=== PATIENT | female | born 2000 | race Caucasian/White ===

== ENCOUNTER 2022-11-25 12:15 | Emergency (ER) | payer BC, SELFPAY ==
[2022-11-25 12:16] VITALS: BP 129/94; PULSE 114; RESP 18; TEMP 37.3; O2SAT 100; BMI 24.4
--- NOTE | 2022-11-25 12:37 | EDS_ITS ---
HPI <JALEN Vega - Last Filed: 11/25/22 15:18> HPI - Female History of Present Illness Chief Complaint: Vag Bld, Preg Narrative Narrative: 22-year-old female thinks she is 7 weeks by dates. 3 days ago she started to have lower abdominal cramping and bleeding. She passed clots yesterday but the bleeding slowed today to spotting. She denies fever chills nausea or vomiting. She is scheduled for her first [employer] appointment with Dr. Bhavesh Green on November 30. This is her first . PFSH <JALEN Vega - Last Filed: 11/25/22 15:18> PFSH Home Medications cephalexin 500 mg capsule 500 mg PO TID 5 days #15 caps 11/25/22 [Rx Last Taken Unknown] Allergy/AdvReac Type Severity Reaction Status Date / Time No Known Allergies Allergy Verified 11/25/22 12:15 Social History Smoking Status: Never smoker ROS <JALEN Vega - Last Filed: 11/25/22 15:18> ROS ED ROS Narrative Constitutional: Negative for fever, chills, malaise. CVS: Negative for palpitations, chest pain. Respiratory: Negative for shortness of breath. GI: Positive for abdominal pain. Negative for nausea, vomiting. : Negative for dysuria. Heme: Negative for easy bruising, bleeding, lymphadenopathy. EXAM <JALEN Vega - Last Filed: 11/25/22 15:18> Physical Exam Narrative Exam Narrative: CONST: Patient sitting in no acute distress. EYES: Normal inspection. NECK: Normal inspection. RESP: No respiratory distress, CTAB. CVS: Regular rate and rhythm, no murmur, no gallop. ABD: Soft with mild suprapubic tenderness, no guarding or rebound, nondistended. SKIN: Color normal, no rash, warm, dry, intact. EXTREMITIES: Normal appearance, no pedal edema. NEURO: Oriented x4. PSYCH: Normal affect. Const Vital Signs: 11/25/22 12:16 11/25/22 14:15 11/25/22 15:20 Temperature 99.2 F H Temperature Source Temporal Pulse Rate 114 H 82 Respiratory Rate 18 14 16 Blood Pressure 129/94 H 138/77 H Blood Pressure Mean 105 Pulse Ox 100 97 Oxygen Delivery Method Room Air <Dr. Edgar Matos DO - Last Filed: 11/25/22 19:56> Physical Exam Const Vital Signs: 11/25/22 12:16 11/25/22 14:15 11/25/22 15:20 Temperature 99.2 F H Temperature Source Temporal Pulse Rate 114 H 82 Respiratory Rate 18 14 16 Blood Pressure 129/94 H 138/77 H Blood Pressure Mean 105 Pulse Ox 100 97 Oxygen Delivery Method Room Air MDM <JALEN Vega - Last Filed: 11/25/22 15:18> [facility] Narrative Medical decision making narrative: History gathered from: Patient and significant other Patient is having abdominal cramping and bleeding in early . She appears well and nontoxic. She is tachycardic at 114, otherwise normal vital signs. She has mild suprapubic tenderness on exam but no peritoneal signs. No heavy bleeding presently. hCG is 1271. Rh+ so no indication for RhoGAM. TV?ultrasound shows small fluid collection in the lower uterine segment which is abnormal. Differential includes early , early miscarriage, possibility of ectopic cannot be excluded. I spoke with Dr. Elias personally evaluated patient in the ER. Likely diagnosis is threatened miscarriage. Patient advised to take Tylenol, will follow-up in our office in 48 hours for quant recheck. UA also had bacteria so she will be treated with Keflex. Patient comfortable with this plan and discharged in stable condition. Differential: Threatened versus completed miscarriage, ectopic Lab Data Attestation: I reviewed the patient's lab results. Labs: Laboratory Results - last 24 hr 11/25/22 11/25/22 11/25/22 13:00 13:05 13:05 HCG, Quant 1271 H Urine Color Yellow Urine Clarity Clear Urine pH 7.0 Ur Specific Butler 1.010 Urine Protein 15 H Urine Glucose (UA) Normal Urine Ketones Negative Urine Occult Blood 150 H Urine Nitrite Positive H Urine Bilirubin Negative Urine Urobilinogen Normal Ur Leukocyte Esterase 25 H Urine RBC 0 SEEN Urine WBC 0-5 SEEN Ur Squamous Epith Cells 0-5 SEEN Urine Bacteria 2+ Urine Mucus 0 SEEN Blood Type O POSITIVE Radiography Diagnostic Testing: Clinical Impression(s) from Imaging Studies Obstetrics Ultrasound 11/25/22 13:02 IMPRESSION: Small fluid collection within the uterus. If this is a gestational sac, it is in the lower uterine segment which is abnormal. Differential diagnosis includes early IUP with embryonic pole below the limits of sonographic resolution, blighted ovum and pseudo-gestational sac. Correlation with serum quantitative beta-hCG and follow up ultrasound is recommended. The possibility of ectopic cannot be excluded on the basis of this exam. Electronically Signed: Bala Vale MD at 14:29 EDT , <Dr. Edgar Matos, DO - Last Filed: 11/25/22 19:56> MDM MDM Narrative Medical decision making narrative: History gathered from: Patient and significant other Patient is having abdominal cramping and bleeding in early . She appears well and nontoxic. She is tachycardic at 114, otherwise normal vital signs. She has mild suprapubic tenderness on exam but no peritoneal signs. No heavy bleeding presently. hCG is 1271. Rh+ so no indication for RhoGAM. TV?ultrasound shows small fluid collection in the lower uterine segment which is abnormal. Differential includes early , early miscarriage, possibility of ectopic cannot be excluded. I spoke with Dr. Elias personally evaluated patient in the ER. Likely diagnosis is threatened miscarriage. Patient advised to take Tylenol, will follow-up in our office in 48 hours for quant recheck. UA also had bacteria so she will be treated with Keflex. Patient comfortable with this plan and discharged in stable condition. Differential: Threatened versus completed miscarriage, ectopic attending note: Patient seen and evaluated with global marketing specialist. I perform my own [id number] evaluation. I agree with the plan of work-up. Attending note: Patient seen and evaluated with global marketing specialist. I perform my own [id number] evaluation. I agree with the plan of work-up. G1, P0 7-week gestation by dates. Increasing pelvic cramping vaginal bleeding with clots for past 2 days. Scheduled to see OB this coming Saturday. Denies urinary symptoms. Denies recent sexual intercourse. She states recreational drug use prior to find out she was . Denies alcohol. Denies tobacco. Exam alert nontoxic. Soft abdomen. hCG quant 1271, all positive. Urine had nitrites and leukocytes. Ultrasound obtain notes small fluid collection in the uterus questionable gestational sac. Discussed with OB, who came to see the patient in the ED, they feel this is gestational sac at this time with early . With vaginal bleeding she has a threatened miscarriage. Pelvic rest. Antibiotics will be started with UTI findings. Close outpatient follow-up in the office to recheck blood work. All questions were. Lab Data Labs: Laboratory Results - last 24 hr 11/25/22 11/25/22 11/25/22 13:00 13:05 13:05 HCG, Quant 1271 H Urine Color Yellow Urine Clarity Clear Urine pH 7.0 Ur Specific Butler 1.010 Urine Protein 15 H Urine Glucose (UA) Normal Urine Ketones Negative Urine Occult Blood 150 H Urine Nitrite Positive H Urine Bilirubin Negative Urine Urobilinogen Normal Ur Leukocyte Esterase 25 H Urine RBC 0 SEEN Urine WBC 0-5 SEEN Ur Squamous Epith Cells 0-5 SEEN Urine Bacteria 2+ Urine Mucus 0 SEEN Blood Type O POSITIVE Radiography Diagnostic Testing: Clinical Impression(s) from Imaging Studies Obstetrics Ultrasound 11/25/22 13:02 IMPRESSION: Small fluid collection within the uterus. If this is a gestational sac, it is in the lower uterine segment which is abnormal. Differential diagnosis includes early IUP with embryonic pole below the limits of sonographic resolution, blighted ovum and pseudo-gestational sac. Correlation with serum quantitative beta-hCG and follow up ultrasound is recommended. The possibility of ectopic cannot be excluded on the basis of this exam. Electronically Signed: Bala Vale MD at 14:29 EDT Reading Location ID and State: [facility] / [place] , Service support , Discharge Plan Triage Chief Complaint: Vag Bld, Preg ED Midlevel Provider: Sara Montalvo ED Provider: Edgar Matos Dx/Rx/DC Orders Clinical Impression: Threatened , Asymptomatic bacteriuria Instructions: ED Possible Miscarriage ... Prescriptions: New cephalexin 500 mg capsule 500 mg PO TID 5 Days Qty: 15 0RF Primary Care Provider: Care Physician,No Primary Referrals: Care Physician,No Primary [Primary Care Provider] - Activity Restrictions/Additional Instructions: Follow-up with Dr. Bhavesh Green's office as instructed. She will recheck blood work. For pain take Tylenol 1000 mg every 6 hours. I also prescribed antibiotics since there is bacteria in your urine and when you are this should be treated. Disposition Disposition: Home, Self Care Discharge Date/Time: 11/25/22 15:21
--- NOTE | 2022-11-25 13:02 | US_ITS ---
STUDY: FIRST TRIMESTER OBSTETRICAL ULTRASOUND REASON FOR EXAM: Female, 22 years old. abdominal pain and bleeding TECHNIQUE: Transvaginal US was obtained to better visualized the ovaries. TECHNICAL QUALITY: Adequate. PRIOR ULTRASOUND: None. FINDINGS: There is a gestational sac in the lower uterine segment. The mean sac diameter (MSD) measures 5.9 mm, indicating an estimated gestational age (EGA) of 5 weeks, 2 days. The gestational sac shape is within normal limits. There is a visualized yolk sac. The yolk sac measures 1.8 mm. The placenta is non-visualized. Due to early gestation, the placenta is not seen. There is no demonstrated embryo ( pole). The estimated gestation age (EGA) by LMP is 7 weeks, 3 days. The estimated date of delivery (KIMBER) by LMP is 11.2.23. The estimated gestation age (EGA) by US is 5 weeks, 2 days. The estimated date of delivery (KIMBER) by US is 11.17.23. The uterus measures 7.2x4.4 cm. There is no demonstrated uterine fibroid. The cervix is closed. The right ovary measures 3.2 cm. There is no right ovarian cyst. There is no visualized right adnexal mass or complex lesion. The left ovary measures 2.5 cm. There is no left ovarian cyst. There is no visualized left adnexal mass or complex lesion. There is no fluid in the cul de sac. US/Transvaginal w/Preg US IMPRESSION: Small fluid collection within the uterus. If this is a gestational sac, it is in the lower uterine segment which is abnormal. Differential diagnosis includes early IUP with embryonic pole below the limits of sonographic resolution, blighted ovum and pseudo-gestational sac. Correlation with serum quantitative beta-hCG and follow up ultrasound is recommended. The possibility of ectopic cannot be excluded on the basis of this exam. Electronically Signed: Bala Vale MD at 14:29 EDT ,
[2022-11-25 13:12] LABS: Mucous, Urine 0 SEEN /hpf (<or=2+); Red Blood Cells-Urine 0 SEEN /hpf (0-5)
[2022-11-25 13:13] LABS: Color, Urine Yellow (Yellow); Glucose, Dipstick Normal (Normal); Ketone-Dipstick Negative (Negative); Leukocyte Esterase-Dipstick 25 /ul (Negative); Nitrite-Dipstick Positive (Negative); Occult Blood-Urine 150 /ul (Negative); Protein-Dipstick 15 mg/dl (Negative); Urine Bilirubin Dipstick Negative (Negative); Urine Clarity Clear (Clear); Urine Urobilinogen Normal (Normal)
[2022-11-25 13:52] LABS: hCG Titer Quant., Serum 1271 mIU/mL (1-3)
[2022-11-25 14:15] VITALS: RESP 14
[2022-11-25 14:24] LABS: Bacteria 2+ /hpf (None Seen); Squamous Epithelial Cells - UA 0-5 SEEN /hpf (5-10); White Blood Cells 0-5 SEEN /hpf (0-5)
[2022-11-25] MEDS: Cephalexin 250 MG Capsule 500 MG PO (15:17)
[2022-11-25 15:20] VITALS: BP 138/77; PULSE 82; RESP 16; O2SAT 97
== END 2022-11-25 15:21 | disposition home or self-care (01) ==
PROVIDERS: Physician Assistant; Emergency Provider Emergency Medicine; Visit Provider Emergency Medicine
DX: O20.0 Threatened abortion (principal); R10.2 Pelvic and perineal pain; O26.891 Other specified pregnancy related conditions, first trimester; R82.71 Bacteriuria; Z3A.01 Less than 8 weeks gestation of pregnancy
CPT/HCPCS: 76817; 81001; 84702; 86900; 86901; 87086; 87088; 99283; A4216

== ENCOUNTER → 2022-11-27 | Outpatient (CLI) | payer BC, SELFPAY ==
[2022-11-27 13:44] LABS: hCG Titer Quant., Serum 838 mIU/mL (1-3)
== END | disposition home or self-care (01) ==
PROVIDERS: Referring Provider Obstetrics & Gynecology; Visit Provider Obstetrics & Gynecology
DX: O20.0 Threatened abortion (principal)
CPT/HCPCS: 36415; 84702

== ENCOUNTER → 2023-04-01 | Outpatient (CLI) | payer BC, SELFPAY ==
[2023-04-01 16:34] LABS: hCG Titer Quant., Serum 33 mIU/mL (1-3)
== END | disposition home or self-care (01) ==
LOC: PAVLAB 15:26
PROVIDERS: Referring Provider Nurse Practitioner Women's Health; Visit Provider Nurse Practitioner Women's Health
DX: O03.9 Complete or unspecified spontaneous abortion without complication (principal)
CPT/HCPCS: 36415; 84702

== ENCOUNTER → 2023-04-03 | Outpatient (CLI) | payer BC, SELFPAY ==
[2023-04-03 16:48] LABS: hCG Titer Quant., Serum 31 mIU/mL (1-3)
== END | disposition home or self-care (01) ==
LOC: PAVLAB 15:43
PROVIDERS: Referring Provider Nurse Practitioner Women's Health; Visit Provider Nurse Practitioner Women's Health
DX: O03.9 Complete or unspecified spontaneous abortion without complication (principal)
CPT/HCPCS: 36415; 84702

== ENCOUNTER 2023-04-05 17:16 | Emergency (ER) | payer BC, SELFPAY ==
[2023-04-05 17:17] VITALS: BP 124/72; PULSE 91; RESP 16; TEMP 36.3; O2SAT 99; BMI 24.5
--- NOTE | 2023-04-05 17:48 | ED.VIS.FEGU ---
HPI HPI - Female History of Present Illness Chief Complaint: Vag Bld, Preg Detail of Chief Complaint: Vaginal bleeding and right lower/groin pain Informant: patient and other (Patient's division human resources manager Dr. Nancy Wright called and brought patient to the emergency department.) Pain Pain: Positive for Pelvic Pain and Vaginal Pain Onset: Days Context: Sudden Onset Timing: Intermittent Quality: Positive for Cramping Location: RLQ Current Severity: Mild Maximum Severity: Moderate Worsened by: Movement and [place] Relieved by: Remaining Still Bleeding Issue: Positive for Vaginal bleeding; Negative for Passing clots or Passing tissue Associated Symptoms Associated Symptoms: Positive for Frequency and Missed Period; Negative for Dysuria, Urgency or Hematuria Test: Positive P: 0 Ab: 1 Narrative Narrative: Patient is a 22-year-old Ab1 (spontaneous miscarriage) female was brought from Dr. Elizondo's office by Dr. Elizondo because of an ectopic . Dr. Reynolds requested a serum quantitative hCG, CBC, CMP and type and screen. These were obtained to determine if patient is a candidate for methotrexate versus surgery. Patient denies pain referred to her shoulder. Patient denies orthostatic symptoms. Patient does report mild nausea. She has no other symptoms. Prior similar symptoms: No Recent Illness/Hospitalization: No PFSH PFSH Medical History No acute medical problems Home Medications NK 04/05/23 [History Last Taken Unknown] Allergy/AdvReac Type Severity Reaction Status Date / Time No Known Allergies Allergy Verified 04/05/23 17:17 Social History Smoking Status: Never smoker Electronic Cigarette Use: with nicotine alcohol intake: current details: occasionally substance use type: does not use caffeine: Yes what type of physical activity do you participate in: weight training frequency: 5-6 times per week additional social history: ROS ROS ED Constitutional Constitutional ED: Denies chills, fever(s) or subjective Eyes Eyes: Denies blurry vision Cardiovascular Cardiovascular: Denies chest pain or palpitations Respiratory/Chest Respiratory/Chest: Denies cough, dyspnea or dyspnea on exertion Gastrointestinal Gastrointestinal: Reports abdominal pain and nausea; Denies vomiting Genitourinary Genitourinary ED: Reports urinary frequency; Denies dysuria or hematuria Musculoskeletal Musculoskeletal: Denies arthralgias, myalgias or neck pain Integumentary Denies rash Hematologic/Lymphatic Hematologic/Lymphatic: Denies easy bleeding or easy bruising EXAM Physical Exam Const Vital Signs: 04/05/23 17:17 Temperature 97.3 F L Temperature Source Temporal Pulse Rate 91 Respiratory Rate 16 Blood Pressure 124/72 H Blood Pressure Mean 89 Pulse Ox 99 Oxygen Delivery Method Room Air Positive well nourished and well developed General Appearance ED: well developed HEENT Reports moist mucous membranes HEENT Narrative: Head is atraumatic normocephalic. Eyes PERRL and EOMs intact bilaterally General Eye ED: Negative for pale conjunctiva or scleral icterus Neck no lymphadenopathy, supple and no JVD Chest Wall inspection of chest normal and palpation of chest normal Resp normal respiratory effort and clear to auscultation bilaterally Cardio regular rate, regular rhythm, S1 normal heart sound, no murmurs and no JVD GI normal to inspection, nondistended, normoactive bowel sounds, soft to palpation, non-distended and no masses; Negative for non-tender Auscultation: hypoactive bowel sounds Palpation: tender RLQ Back/Spine no CVA tenderness Extremity normal to inspection Neuro oriented x3 and CN's II-XII intact bilaterally Sensorium / Orientation: alert Psych Mood & Affect: tearful Skin no rashes or lesions noted and no wounds MDM MDM MDM Narrative Medical decision making narrative: Patient with known ectopic. Patient had blood work obtained to determine if patient is a candidate for methotrexate versus operative intervention for right ectopic . Patient was made NPO. She not had any to eat since 10 AM. Lab Data Attestation: I reviewed the patient's lab results. Lab results narrative: CBC and comprehensive metabolic panel are normal. hCG is 23. Labs: Laboratory Results - last 24 hr 04/05/23 17:41 WBC 8.7 RBC 4.93 Hgb 13.5 Hct 41.1 MCV 83.4 MCH 27.4 MCHC 32.8 RDW Std Deviation 37.5 RDW Coeff of Julius 12.3 Plt Count 283 MPV 9.5 Immature Gran % (Auto) 0.200 Neut % (Auto) 68.6 Lymph % (Auto) 23.2 Power % (Auto) 5.3 Eos % (Auto) 2.0 Baso % (Auto) 0.7 Absolute Neuts (auto) 5.9 Absolute Lymphs (auto) 2.01 Nucleated RBC % 0 Sodium 140 Potassium 3.8 Chloride 107 Carbon Dioxide 28.0 Anion Gap 5 BUN 9 Creatinine 0.82 Estim Creat Clear Calc 95.19 Est GFR (MDRD) Af Amer 109 Est GFR (MDRD) Non-Af 90 BUN/Creatinine Ratio 10.9 Glucose 91 Calcium 8.9 Total Bilirubin 0.60 AST 25 ALT 37 Alkaline Phosphatase 71 Total Protein 8.0 Albumin 4.3 Globulin 3.7 Albumin/Globulin Ratio 1.2 HCG, Quant 23 H Blood Type O POSITIVE Antibody Screen NEGATIVE Management Discussion w/another healthcare provider: Motorboat Mechanic Inboard/Outboard Treatment and Re-Evaluation Narrative: Patient discussed with division human resources manager. She spoke to the patient. Patient had a spontaneous miscarriage. Suspect the lesion that was noted it was a cyst most likely corpus luteal. Discharge Plan Triage Chief Complaint: Vag Bld, Preg ED Provider: Derrick Brooke Dx/Rx/DC Orders Clinical Impression: Complete Instructions: ED Miscarriage Spontaneous Prescriptions: No Action NK Primary Care Provider: Care Physician,No Primary Referrals: Nancy Moran DO [Med Staff - Active Staff] - As Needed Care Physician,No Primary [Primary Care Provider] - Disposition Disposition: Home, Self Care
[2023-04-05 18:07] LABS: Absolute Lymphocyte Count 2.01 X10^3/uL (0.83-4.51); Absolute Neutrophil Count 5.9 X10^3/uL (2.0-7.7); Basophil# 0.06 X10^3/uL; Basophil% 0.7 % (0-1); Eosinophil# 0.17 X10^3/uL; Hematocrit 41.1 % (37-47); Hemoglobin 13.5 g/dL (12.0-15.0); Lymphocyte # 2.01 X10^3/ul (0.83-4.51); Lymphocyte % 23.2 % (19-41); Mean Corp Hgb Conc 32.8 g/dL (32-36); Mean Corpuscular Hgb 27.4 pg (27.0-32.0); Mean Corpuscular Volume 83.4 fL (81-99); Mean Platelet Vol. 9.5 fl (6.2-12.0); Monocyte# 0.46 X10^3/uL; Monocyte% 5.3 % (0-10); NRBC Flagged by Analyzer 0 % (0-5); Neutrophil # 5.93 X10^3/uL (2.7-7.7); Neutrophil % 68.6 % (47-70); Platelet Count 283 K/mm3 (150-450); RBC Distribution Width CV 12.3 % (11.6-14.6); RBC Distribution Width SD 37.5 fl (35.1-43.9); Red Blood Count 4.93 M/mm3 (4.2-5.4); White Blood Count 8.7 K/mm3 (4.4-11.0)
[2023-04-05 18:08] LABS: ALB/GLOB Ratio 1.2 RATIO (0.9-2.4); AST(SGOT) 25 U/L (15-37); Alanine Aminotransfer ALT/SGPT 37 U/L (13-56); Albumin, Serum 4.3 g/dL (3.2-5.0); Alkaline Phosphatase 71 U/L (45-117); Anion Gap 5 (5-15); BUN 9 mg/dL (7-18); BUN/Creat Ratio 10.9 RATIO (10-20); Calcium,Total 8.9 mg/dL (8.5-10.1); Chloride 107 mmol/L (98-107); Creatinine, Serum 0.82 mg/dL (0.55-1.02); EST Glomerular Filtration Rate 90 mL/min (>60); Est Glom Filt Rate - Afr Amer 109 mL/min (>60); Estimated Creatinine Clearance 95.19 ml/min; Globulin 3.7 g/dL (2.2-4.2); Glucose 91 mg/dL (74-106); Potassium 3.8 mmol/L (3.5-5.1); Sodium Level 140 mmol/L (136-145)
[2023-04-05 18:15] LABS: hCG Titer Quant., Serum 23 mIU/mL (1-3)
--- NOTE | 2023-04-05 19:02 | ED.RN ---
THIS NURSE SPOKE W/ COLLEEN TRAINING AND DEVELOPMENT PROJECT LEADER IN REFERENCE TO BEREAVEMENT PACKET NEEDING TO BE COMPLETED ON THIS PATIENT. (MCKAYLA-CHARGE UNABLE TO LOCATE AT TIME PRIOR TO D/C). NO PACKET NEEDING TO BE DONE DUE TO PATIENT HAVING NO PRODUCT OF CONCEPTION PER TRAINING AND DEVELOPMENT PROJECT LEADER
[2023-04-05 19:03] VITALS: BP 99/78; PULSE 76; RESP 17; O2SAT 100
--- NOTE | 2023-04-05 19:04 | ED.RN ---
FORGET ME NOT BASKET GIVEN TO PT AND PT SPOUSE ON DISCHARGE.
== END 2023-04-05 19:05 | disposition home or self-care (01) ==
PROVIDERS: Emergency Provider Emergency Medicine; Visit Provider Emergency Medicine
DX: O03.9 Complete or unspecified spontaneous abortion without complication (principal); O99.330 Smoking (tobacco) complicating pregnancy, unspecified trimester; F17.290 Nicotine dependence, other tobacco product, uncomplicated
CPT/HCPCS: 80053; 84702; 85025; 86850; 86900; 86901; 99283; A4216

== ENCOUNTER → 2023-04-05 | Outpatient (CLI) | payer BC, SELFPAY ==
--- NOTE | 2023-04-05 15:13 | US_ITS ---
We are attempting to reach an attending provider to discuss findings. An addendum with communication details will be sent when the communication is complete. STUDY: FIRST TRIMESTER OBSTETRICAL ULTRASOUND REASON FOR EXAM: Female, 22 years old missed , STAT read. -- bleeding 2.5 weeks -- RLQ pain LMP: TECHNIQUE: Transvaginal TECHNICAL QUALITY: Adequate. PRIOR ULTRASOUND: November 25, 2022 FINDINGS: No evidence for intrauterine gestational sac. The uterus measures 6.1 x 3.5 x 2.6 cm. There is no demonstrated uterine fibroid. The cervix is closed. The right ovary measures 3.8 x 3 x 2.2 cm. There is a complex cyst measuring 2.3 x 2 x 1.4 cm peripheral blood flow. Possibility of ectopic not entirely excluded. Recommend clinical correlation and follow-up studies. . The left ovary measures 4.3 x 2.2 x 1.8 cm. There is no left ovarian cyst. There is no visualized left adnexal mass or complex lesion. There is moderate fluid in the cul de sac. Previously noted fluid within the lower uterine segment not visualized at this time. US/Transvaginal w/Preg US IMPRESSION: No evidence for intrauterine gestational sac. Complex cyst in the right ovary with moderate fluid in the cul-de-sac. Possibility of ectopic not entirely excluded. Recommend clinical correlation and follow-up studies Electronically Signed: Yang Muñiz MD at 16:45 EDT ,
== END | disposition home or self-care (01) ==
LOC: US 15:12
PROVIDERS: Referring Provider Obstetrics & Gynecology; Visit Provider Obstetrics & Gynecology
DX: O02.1 Missed abortion (principal)
CPT/HCPCS: 76817

== ENCOUNTER → 2023-04-10 | Outpatient (CLI) | payer BC, SELFPAY ==
[2023-04-10 17:28] LABS: hCG Titer Quant., Serum 3 mIU/mL (1-3)
== END | disposition home or self-care (01) ==
LOC: LAB 16:08
PROVIDERS: Referring Provider Obstetrics & Gynecology; Visit Provider Obstetrics & Gynecology
DX: O02.1 Missed abortion (principal)
CPT/HCPCS: 36415; 84702

== ENCOUNTER → 2023-10-17 | Outpatient (CLI) | payer OTHER, SELFPAY ==
[2023-10-17 15:47] LABS: Absolute Lymphocyte Count 2.05 X10^3/uL (0.83-4.51); Absolute Neutrophil Count 6.3 X10^3/uL (2.0-7.7); Basophil# 0.06 X10^3/uL; Basophil% 0.6 % (0-1); Eosinophil# 0.23 X10^3/uL; Eosinophils% 2.5 % (0-5); Hemoglobin 11.8 g/dL (12.0-15.0); Lymphocyte # 2.05 X10^3/ul (0.83-4.51); Mean Corp Hgb Conc 33.7 g/dL (32-36); Mean Corpuscular Hgb 27.7 pg (27.0-32.0); Mean Corpuscular Volume 82.2 fL (81-99); Mean Platelet Vol. 9.4 fl (6.2-12.0); Monocyte# 0.61 X10^3/uL; Monocyte% 6.5 % (0-10); NRBC Flagged by Analyzer 0 % (0-5); Neutrophil # 6.33 X10^3/uL (2.7-7.7); Platelet Count 247 K/mm3 (150-450); RBC Distribution Width CV 12.9 % (11.6-14.6); RBC Distribution Width SD 38.3 fl (35.1-43.9); Red Blood Count 4.26 M/mm3 (4.2-5.4); White Blood Count 9.3 K/mm3 (4.4-11.0)
[2023-10-17 16:56] LABS: HIV - WCH Non-Reactive (Nonreactive); Hepatitis B Surface Antigen Non-Reactive (Nonreactive); Hepatitis C Antibody Non-Reactive (Nonreactive); Rubella IgG Reactive (Nonreactive); Syphilis Antibodies Non-reactive
[2023-10-22 06:09] LABS: Chlamydia By Nucleic Acid AMP Negative (Negative); Gonococcus By Nucleic Acid AMP Negative (Negative)
[2023-10-24 16:50] LABS: HPV Reflexed? NOT INDICATED
== END | disposition home or self-care (01) ==
PROVIDERS: Referring Provider Obstetrics & Gynecology; Visit Provider Obstetrics & Gynecology
DX: O09.91 Supervision of high risk pregnancy, unspecified, first trimester (principal); Z31.5 Encounter for procreative genetic counseling; Z3A.00 Weeks of gestation of pregnancy not specified
CPT/HCPCS: 36415; 85025; 86703; 86762; 86780; 86803; 86850; 86900; 86901; 87086; 87340; 87491; 87591; 88175; G0145

== ENCOUNTER → 2024-02-05 | Outpatient (CLI) | payer OTHER, SELFPAY ==
[2024-02-05 17:03] LABS: Absolute Lymphocyte Count 1.38 X10^3/uL (0.83-4.51); Absolute Neutrophil Count 6.3 X10^3/uL (2.0-7.7); Basophil# 0.04 X10^3/uL; Basophil% 0.5 % (0-1); Eosinophil# 0.11 X10^3/uL; Eosinophils% 1.3 % (0-5); Hematocrit 32.3 % (37-47); Hemoglobin 10.4 g/dL (12.0-15.0); Lymphocyte # 1.38 X10^3/ul (0.83-4.51); Lymphocyte % 16.4 % (19-41); Mean Corp Hgb Conc 32.2 g/dL (32-36); Mean Corpuscular Hgb 28.4 pg (27.0-32.0); Mean Corpuscular Volume 88.3 fL (81-99); Monocyte# 0.49 X10^3/uL; Monocyte% 5.8 % (0-10); NRBC Flagged by Analyzer 0 % (0-5); Neutrophil # 6.34 X10^3/uL (2.7-7.7); Neutrophil % 75.2 % (47-70); Platelet Count 211 K/mm3 (150-450); RBC Distribution Width CV 13.5 % (11.6-14.6); RBC Distribution Width SD 43.9 fl (35.1-43.9); Red Blood Count 3.66 M/mm3 (4.2-5.4); White Blood Count 8.4 K/mm3 (4.4-11.0)
[2024-02-05 17:26] LABS: Glucose Challenge Gest 1H 50g 116 mg/dL (70-140)
[2024-02-05 17:57] LABS: HIV - WCH Non-Reactive (Nonreactive)
[2024-02-07 09:09] LABS: V-Zoster IgG (Immunity) 618 index (Immune >165)
== END | disposition home or self-care (01) ==
PROVIDERS: Nurse Practitioner Women's Health; Referring Provider Advanced Practice Midwife; Visit Provider Advanced Practice Midwife
DX: Z34.90 Encounter for supervision of normal pregnancy, unspecified, unspecified trimester (principal)
CPT/HCPCS: 36415; 82950; 85025; 86703; 86787; 86850; 86900; 86901

== ENCOUNTER → 2024-03-20 | Outpatient (CLI) | payer OTHER, SELFPAY ==
[2024-03-20 14:40] LABS: Absolute Lymphocyte Count 1.86 X10^3/uL (0.83-4.51); Absolute Neutrophil Count 6.3 X10^3/uL (2.0-7.7); Basophil# 0.05 X10^3/uL; Basophil% 0.5 % (0-1); Eosinophils% 1.1 % (0-5); Hematocrit 32.5 % (37-47); Hemoglobin 11.1 g/dL (12.0-15.0); Lymphocyte # 1.86 X10^3/ul (0.83-4.51); Lymphocyte % 20.4 % (19-41); Mean Corp Hgb Conc 34.2 g/dL (32-36); Mean Corpuscular Hgb 29.6 pg (27.0-32.0); Mean Corpuscular Volume 86.7 fL (81-99); Monocyte# 0.71 X10^3/uL; Monocyte% 7.8 % (0-10); NRBC Flagged by Analyzer 0 % (0-5); Neutrophil # 6.28 X10^3/uL (2.7-7.7); Neutrophil % 68.8 % (47-70); Platelet Count 179 K/mm3 (150-450); RBC Distribution Width CV 13.3 % (11.6-14.6); RBC Distribution Width SD 41.6 fl (35.1-43.9); Red Blood Count 3.75 M/mm3 (4.2-5.4); White Blood Count 9.1 K/mm3 (4.4-11.0)
== END | disposition home or self-care (01) ==
LOC: LAB 14:21
PROVIDERS: Referring Provider Registered Nurse; Visit Provider Registered Nurse
DX: O99.019 Anemia complicating pregnancy, unspecified trimester (principal); Z3A.00 Weeks of gestation of pregnancy not specified
CPT/HCPCS: 36415; 85025

== ENCOUNTER → 2024-04-08 | Outpatient (CLI) | payer OTHER, SELFPAY | END | disposition home or self-care (01) | PROVIDERS: Referring Provider Obstetrics & Gynecology; Visit Provider Obstetrics & Gynecology | DX: O09.93 Supervision of high risk pregnancy, unspecified, third trimester (principal); Z3A.00 Weeks of gestation of pregnancy not specified | CPT/HCPCS: 87081 ==

== ENCOUNTER 2024-05-01 12:45 | Inpatient (IN) | payer OTHER, SELFPAY ==
[2024-05-01] VITALS (55 sets, daily range): BP systolic 91–163; BP diastolic 53–123; PULSE 79–104; RESP 16–17; TEMP 36.7–37.8; O2SAT 97–100; BMI 31.6
[2024-05-01] MEDS: Lactated Ringers 1,000 ML 50 ML IV (13:42)
[2024-05-01 14:00] LABS: Absolute Lymphocyte Count 1.71 X10^3/uL (0.83-4.51); Absolute Neutrophil Count 7.3 X10^3/uL (2.0-7.7); Basophil# 0.06 X10^3/uL; Basophil% 0.6 % (0-1); Eosinophil# 0.11 X10^3/uL; Eosinophils% 1.1 % (0-5); Hematocrit 34.6 % (37-47); Hemoglobin 11.7 g/dL (12.0-15.0); Lymphocyte # 1.71 X10^3/ul (0.83-4.51); Lymphocyte % 17.1 % (19-41); Mean Corp Hgb Conc 33.8 g/dL (32-36); Mean Corpuscular Hgb 28.7 pg (27.0-32.0); Mean Platelet Vol. 10.6 fl (6.2-12.0); Monocyte# 0.68 X10^3/uL; Monocyte% 6.8 % (0-10); NRBC Flagged by Analyzer 0 % (0-5); Neutrophil # 7.29 X10^3/uL (2.7-7.7); Platelet Count 152 K/mm3 (150-450); RBC Distribution Width CV 13.2 % (11.6-14.6); RBC Distribution Width SD 40.2 fl (35.1-43.9); Red Blood Count 4.07 M/mm3 (4.2-5.4)
[2024-05-01] MEDS: Oxytocin 15 Units/NS 250ml 15 UNITS/250 ML IV.SOLN 2 UNITS IV (14:13)
[2024-05-01 14:16] LABS: Bedside Glucose 79 mg/dL (74-106)
[2024-05-01 14:49] LABS: Syphilis Antibodies Non-reactive
[2024-05-01] MEDS: 0.9% Normal Saline Single 100 ML IV.SOLN. INTRA-UTER (15:05)
--- NOTE | 2024-05-01 17:00 | HP.PCM.OB_ITS ---
HPI - General General Date of Admission: 05/01/24 HPI Narrative ESPINOZA GODDARD, is a 23 F who presents at 39.2 with polyhydramnios and LGA on ultrasound with >99.99AC. decision made for IOL with SM. Maternal Data Information KIMBER Calculator Estimated Delivery Date Method Current WG Current Estimate 05/06/24 LMP (Certain) 39w 2d Other Estimates 05/03/24 Ultrasound #1 39w 5d PFSH PFSH Medical History (Updated 05/01/24 @ 17:06 by Edie Pemberton CNM) Polyhydramnios Choroid plexus cyst of fetus History of asthma No acute medical problems Complete Home Medications ?Medication ?Instructions ?Recorded ?Last Taken ?Type PNV 178-FA 180 mcg-om3 35 mg-dha 1 tab PO DAILY 10/08/23 05/01/24 08:00 History 25 mg-epa 5 mg-fish oil chew tablet 1 TAB ferrous sulfate 325 mg (65 mg 325 mg PO DAILY anemia 05/01/24 04/30/24 20:00 History iron) tablet (iron) 325 mg Allergy/AdvReac Type Severity Reaction Status Date / Time No Known Allergies Allergy Verified 05/01/24 12:57 Family History Aunt Cancer Maternal Aunts all had lung cancer-heavy smokers Social History adopted: No household members: spouse housing: apartment current occupational status: employed current occupation: [employer] current occupational exposures/hazards: No pets and animals: Yes (avoid litterbox) pets and animals: cat(s) history of recent travel: No sexually active: Yes Smoking Status: Former smoker alcohol intake: current details: occasionally- not while substance use type: does not use well-balanced diet: daily or most days caffeine: Yes Type: carbonated beverages Number of servings: 1 eating out: 1-3 times/week during the past year weight has: remained stable what type of physical activity do you participate in: weight training frequency: 3-4 times per week duration: 45-60 minutes/day cindy/jew: Spiritism seatbelt use: always do you feel safe at home: Yes additional social history: - Chan- [employer] Savings History 3 Elective abortions Hx Para 0 Spontaneous abortions 2 Hx # Term Pregnancies Ectopic pregnancies Hx # Pregnancies Multiple births # of living children 0 Past Pregnancies Del. Date Name GA/Weeks Outcome Route Bth Weight Gen Labor Lgth Anesthesia Del Gualbertoatn Provider FOB 11/23/22 5 spontaneous 04/08/23 3 spontaneous Visit Details Expected Delivery Route/Plan Labor Preferences- CB/BF classes: encouraged labor support person: Chan labor intervention preferences: pain management options preferred: limited intervention if possible cut cord/dad catch: yes : yes PP control planned: discussed discussed possible routes of delivery and associated risks: [] special requests: [] Plans Covid status: [] Flu vaccine: declined Tdap vaccine: declines Rhogam: na LARC form signed: yes Problem list reviewed and updated with the most current plan of care details and appropriate orders placed. Relevant counseling for the gestational age provided. Continue routine care and follow up unless otherwise noted in visit notes/problem list details OB Flowsheet Initial Weight: Not Recorded Date -?-?-?-?-?-?-?-?-?-?-?-?- EGA Weight BP Urine Prot -?-?-?-?-?-?-?-?-?-?-?-?- Glucose FHR FuHt Pres Dilation -?-?-?-?-?-?-?-?-?-?-?-?- Effaced St Visit Note 10/17/23 -?-?-?-?-?-?-?-?-?-?-?-?- 11w 1d 148 lb 117/72 -?-?-?-?-?-?-?-?-?-?-?-?- 170 -?-?-?-?-?-?-?-?-?-?-?-?- SM- no vb crmapi ng, CRL 4.4cm cons with LMP 11/14/23 -?-?-?-?-?-?-?-?-?-?-?-?- 15w 1d 151 lb 114/74 Negative -?-?-?-?-?-?-?-?-?-?-?-?- Negative 150 -?-?-?-?-?-?-?-?-?-?-?-?- SM- no vb crmapi ng, discussed testing 12/11/23 -?-?-?-?-?-?-?-?-?-?-?-?- 19w 0d 158 lb 113/73 Negative -?-?-?-?-?-?-?-?-?-?-?-?- Negative 155 -?-?-?-?-?-?-?-?-?-?-?-?- LC- no vb/crampi ng. anatomy scan report pending. 01/09/24 -?-?-?-?-?-?-?-?-?-?-?-?- 23w 1d 164 lb 8 oz 110/71 Nega tive -?-?-?-?-?-?-?-?-?-?-?-?- Negative 150 23 -?-?-?-?-?-?-?--?-?-?-?-?- KW- no vb/lof/ct x. good fm. 28 weeks labs discussed 02/05/24 -?-?-?-?-?-?-?-?-?-?-?-?- 27w 0d 169 lb 2 oz 114/64 Nega tive -?-?-?-?-?-?-?-?-?--?-?-?- Negative 151 27 -?-?-?-?-?-?-?-?-?-?-?-?- MH-NO VB,LOF. Go od FM. 28 wk labs pending. [facility] 02/21/24 -?-?-?-?-?-?-?-?-?-?-?-?- 29w 2d 169 lb 100/64 Negative -?-?-?-?-?-?-?-?-?-?-?-?- Negative 135 29 -?-?-?-?-?-?-?-?-?-?-?-?- LC- no vb/ctx/lo f. good fm. LC- no vb/ctx/lof. good fm. cbc in 2 weeks, has been taking iron supplement. 03/04/24 -?-?-?-?-?-?-?-?-?-?-?-?- 31w 0d 173 lb 4 oz 104/66 Nega tive -?-?-?-?-?-?-?-?-?-?-?-?- Negative 159 31 -?-?-?-?-?-?-?-?-?-?-?-?- MH-No VB, LOF. G ood FM. Taking FE and will get CBC done. 03/20/24 -?-?-?-?-?-?-?-?-?-?-?-?- 33w 2d 172 lb 4 oz 110/69 Nega tive -?-?-?-?-?-?-?-?-?-?-?-?- Negative 145 34 Cephalic -?-?-?-?-?-?-?-?-?-?-?-?- KW- no vb/lof/ct x. good fm. 04/02/24 -?-?-?-?-?-?-?-?-?-?-?-?- 35w 1d 177 lb 2 oz 106/73 Nega tive -?-?-?-?-?-?-?-?-?-?-?-?- Negative 140 35 -?-?-?-?-?-?-?-?-?-?-?-?- JV- no lof, vagi nal bleeding, or dec fm. planning for birthing classes soon. 04/08/24 -?-?-?-?-?-?-?-?-?-?-?-?- 36w 0d 175 lb 8 oz 112/68 Nega tive -?-?-?-?-?-?-?-?-?-?-?-?- Negative 144 37 Cephalic -?-?-?-?-?-?-?-?-?-?-?-?- JV- pt did her o wn GBS. she declines pelvic exam. no lof, vaginal bleeding, or dec fm. 04/16/24 -?-?-?-?-?-?-?-?-?-?-?-?- 37w 1d 179 lb 8 oz 114/72 Nega tive -?-?-?-?-?-?-?-?-?-?-?-?- Negative 138 38 Cephalic -?-?-?-?-?-?-?-?-?-?-?-?- JV- pt declines pelvic exam. no complaints. labor precautions discussed. 04/23/24 -?-?-?-?-?-?-?-?-?-?-?-?- 38w 1d 184 lb 4 oz 118/74 Nega tive -?-?-?-?-?-?-?-?-?-?-?-?- Negative 140 40 Cephalic -?-?-?-?-?-?-?-?-?-?-?-?- SM- no vb lof go od fm no regular ctx reviewed fm precautions 04/30/24 -?-?-?-?-?-?-?-?-?-?-?-?- 39w 1d 182 lb 119/83 -?-?-?-?-?-?-?-?-?-?-?-?- 125 44 Cephalic 1.5 -?-?-?-?-?-?-?-?-?-?-?-?- 70 -2 SM- no vb lof good fm irregular ctx lost her mucous plug NST FHR Rate Baby A Baseline: 125 Variability:: Moderate Accelerations:: 15 x 15 Decelerations:: None NST Reactive:: Yes FHR Category:: Category I ROS Cardiovascular Cardiovascular: Denies abdominal pain, chest pain, diaphoresis or dyspnea Respiratory/Chest Respiratory/Chest: Denies change in mental status, chest congestion, chest tightness, cough, shortness of breath at rest, shortness of breath with exertion, breast mass, breast pain, breast skin changes, breast swelling, change in breast shape or nipple discharge Genitourinary Genitourinary: Reports change in urinary stream Musculoskeletal Musculoskeletal: Reports none Integumentary Integumentary: Reports none Neurologic Neurologic: Reports none Psychiatric Psychiatric: Reports none Endocrine Endocrinology: Reports none Hematologic/Lymphatic Hematologic/Lymphatic: Reports none Allergic/Immunologic Allergic/Immunologic: Reports none Vital Signs Vital Signs Vital Signs: 05/01/24 13:28 05/01/24 13:28 05/01/24 13:29 Temperature Temperature Source Pulse Rate 95 Respiratory Rate Blood Pressure 118/83 H BP Systolic 118 BP Diastolic 83 Pulse Ox 98 05/01/24 13:29 05/01/24 13:29 05/01/24 13:29 Temperature Temperature Source Tympanic Pulse Rate 98 Respiratory Rate Blood Pressure 118/83 H BP Systolic 118 BP Diastolic 83 Pulse Ox 05/01/24 13:29 05/01/24 13:29 05/01/24 13:29 Temperature Temperature Source Pulse Rate 93 Respiratory Rate 16 Blood Pressure BP Systolic BP Diastolic Pulse Ox 98 05/01/24 13:29 05/01/24 14:41 05/01/24 14:41 Temperature 100.0 F H Temperature Source Temporal Pulse Rate Respiratory Rate Blood Pressure 105/60 BP Systolic 105 BP Diastolic 60 Pulse Ox 05/01/24 14:41 05/01/24 14:41 05/01/24 14:41 Temperature 98.8 F Temperature Source Pulse Rate 85 Respiratory Rate 16 Blood Pressure BP Systolic BP Diastolic Pulse Ox 05/01/24 14:41 05/01/24 14:41 05/01/24 15:39 Temperature Temperature Source Pulse Rate 90 87 Respiratory Rate Blood Pressure BP Systolic BP Diastolic Pulse Ox 97 05/01/24 15:39 05/01/24 15:41 05/01/24 15:41 Temperature Temperature Source Pulse Rate 91 Respiratory Rate Blood Pressure 121/64 H BP Systolic 121 BP Diastolic 64 Pulse Ox 97 Weight Weight: 184 lb Body Mass Index (BMI) 31.6 Physical Exam Const alert, oriented x3 and no apparent distress General Appearance: cooperative, comfortable and well kempt Orientation / Consciousness: awake and oriented to person Exam Limitations: no limitations HEENT normocephalic Neck full ROM Chest inspection of chest normal Resp normal respiratory effort, normal air movement and no retractions Effort and Inspection: able to speak in complete sentences and symmetric chest movement Cardio regular rate Peripheral Pulses: pulses 2+ throughout GI normal to inspection, nondistended, normoactive bowel sounds Inspection: gravid no CVA tenderness and appearance of the vagina normal External Female Exam: normal appearance of the urethra; Negative for external lesion OB / External & Speculum: external exam normal Manual OB Exam: estimated gestational size appropriate and presentation cephalic Uterus Palpation: Negative for uterus tender Extremity normal to inspection Skin no rashes or lesions noted Neuro deep tendon reflexes 2+ bilaterally and gait normal Motor Exam: strength 5/5 throughout and clonus absent Psych Activity / Motor Behavior: appropriate eye contact Speech: normal speech Labs Labs Labs: Blood Type O POSITIVE Antibody Screen NEGATIVE Hct 34.6 % (37-47) L Hgb 11.7 g/dL (12.0-15.0) L Obstetrics Ultrasound Syphilis Total Ab Non-reactive VZV IgG Antibody 618 index (Immune >165) Rubella IgG Antibody Reactive (Nonreactive) Hep Bs Antigen Non-Reactive (Nonreactive) Hepatitis C Antibody Non-Reactive (Nonreactive) Chlamydia DNA (MERISSA) Negative (Negative) N.gonorrhoeae DNA (MERISSA) Negative (Negative) HIV 1&2 Antibody Non-Reactive (Nonreactive) Glucose 1 Hr 50 gm 116 mg/dL (70-140) Assessment & Plan (1) Polyhydramnios: (2) Large for gestational age fetus affecting management of mother: COMMENT: 4545g on 05/01/2024 with 99.99 AC. (3) Anxiety: COMMENT: no meds, counseling encouraged; stable (4) Supervision of high-risk : QUALIFIERS: Trimester: third trimester Qualified Code(s): O09.93 - Supervision of high risk , unspecified, third trimester COMMENT: PRR , KIMBER 05/06/24, girl Kevon Chan (5) : QUALIFIERS: Weeks of gestation: 39 weeks Qualified Code(s): Z3A.39 - 39 weeks gestation of COMMENT: GBS neg, anatomy nl, nl genetic & carrier testing NIPT low risk, carrier neg. carrier for Polycystic Kidney Disease (6) Choroid plexus cyst of fetus: COMMENT: NIPT low risk (7) Anemia affecting : QUALIFIERS: Trimester: third trimester Qualified Code(s): O99.013 - Anemia complicating , third trimester COMMENT: start PO iron (8) Encounter for induction of labor: COMMENT: plan valencia and pitocin PLAN: Patient presents IOL, plan management for with valencia bulb/pitocin/AROM. Pain management: plans epidural. GBS negative. Management of any complications: none I have reviewed the [facility] and made any clinically relevant updates. Dr. Elias updated on admission, exam and poc. agrees with management. co- management for poly/LGA.
--- NOTE | 2024-05-01 18:08 | PCM.PN.OB ---
Subjective Subjective comfortable with contractions q2-3 minutes Objective Data Objective Data Vital Signs: Vital Signs Temp Pulse Resp BP Pulse Ox 98.0 F 82 17 112/59 L 100 05/01/24 17:18 05/01/24 17:17 05/01/24 17:18 05/01/24 17:17 05/01/24 17:17 Weight: 184 lb Body Mass Index (BMI) 31.6 Intake & Output: Intake and Output for Last 24 Hours 04/29/24 04/30/24 05/01/24 23:59 23:59 23:59 Intake Total 10.27 / 10.27 Output Total 575 / 575 Balance -564.73 / -564.73 Lab / Micro Data 05/01/24 13:40 Labs: Laboratory Results - last 24 hr 05/01/24 13:07: POC Glucose 79 05/01/24 13:40: WBC 10.0, RBC 4.07 L, Hgb 11.7 L, Hct 34.6 L, MCV 85.0, MCH 28.7, MCHC 33.8, RDW Std Deviation 40.2, RDW Coeff of Julius 13.2, Plt Count 152, MPV 10.6, Immature Gran % (Auto) 1.400 H, Neut % (Auto) 73.0 H, Lymph % (Auto) 17.1 L, [place] % (Auto) 6.8, Eos % (Auto) 1.1, Baso % (Auto) 0.6, Absolute Neuts (auto) 7.3, Absolute Lymphs (auto) 1.71, Nucleated RBC % 0, Syphilis Total Ab Non-reactive, Blood Type O POSITIVE, Antibody Screen NEGATIVE NST FHR Rate Baby A Baseline: 125-130 Variability:: Moderate Accelerations:: 15 x 15 Decelerations:: None NST Reactive:: Yes FHR Category:: Category I Assessment & Plan (1) Encounter for induction of labor: COMMENT: plan valencia and pitocin (2) Large for gestational age fetus affecting management of mother: COMMENT: 4545g on 05/01/2024 with 99.99 AC. (3) Polyhydramnios: COMMENT: AROM at 1800, large amounts. clear. (4) Supervision of high-risk : QUALIFIERS: Trimester: third trimester Qualified Code(s): O09.93 - Supervision of high risk , unspecified, third trimester COMMENT: PRR , KIMBER 05/06/24, girl Kevon Chan (5) : QUALIFIERS: Weeks of gestation: 39 weeks Qualified Code(s): Z3A.39 - 39 weeks gestation of COMMENT: GBS neg, anatomy nl, nl genetic & carrier testing NIPT low risk, carrier neg. carrier for Polycystic Kidney Disease PLAN: Plan at 39.2 comfortable without intervention. current tracing: FHT: Moderate variability reactive no decelerations category I tracing [place]: q2-3 min Contractions reviewed tracing abnormalities since last note: none A/P: AROM for clear fluid. epidural placement when desired continue to increase pitocin per protocol
[2024-05-01] MEDS: Lactated Ringers 1,000 ML 999 ML IV (21:30)
[2024-05-01] MEDS: fentaNYL-bupivacaine (epidural) 100 ML BAG EPIDURAL (22:54)
[2024-05-01] MEDS: LACTATED RINGERS 500 ML 999 ML IV (23:45)
[2024-05-02] VITALS (56 sets, daily range): BP systolic 84–117; BP diastolic 43–83; PULSE 66–122; RESP 11–18; TEMP 36.6–37.9; O2SAT 96–100
[2024-05-02] MEDS: Lactated Ringers 1,000 ML 200 ML IV ×4 (02:04→16:28)
[2024-05-02] MEDS: LACTATED RINGERS 500 ML 999 ML IV ×2 (03:57→12:15)
[2024-05-02] MEDS: fentaNYL-bupivacaine (epidural) 100 ML BAG EPIDURAL ×2 (03:57→11:15)
--- NOTE | 2024-05-02 06:20 | PN.OBGYN_ITS ---
Subjective Subjective comfortable with epidural Objective Data Objective Data Vital Signs: Vital Signs Temp Pulse Resp BP Pulse Ox O2 Del Method 98.3 F 80 16 93/52 L 97 Room Air 05/02/24 05:40 05/02/24 05:48 05/02/24 05:40 05/02/24 05:48 05/02/24 05:41 05/02/24 03:59 Oxygen Delivery Method Room Air Weight: 184 lb Body Mass Index (BMI) 31.6 Intake & Output: Intake and Output for Last 24 Hours 04/30/24 05/01/24 05/02/24 23:59 23:59 23:59 Intake Total 18.47 / 18.47 2197.20 / 2197.20 Output Total 975 / 975 300 / 300 Balance -956.53 / -956.53 1897.20 / 1897.20 Lab / Micro Data 05/01/24 13:40 Labs: Laboratory Results - last 24 hr 05/01/24 13:07: POC Glucose 79 05/01/24 13:40: WBC 10.0, RBC 4.07 L, Hgb 11.7 L, Hct 34.6 L, MCV 85.0, MCH 28.7, MCHC 33.8, RDW Std Deviation 40.2, RDW Coeff of Julius 13.2, Plt Count 152, MPV 10.6, Immature Gran % (Auto) 1.400 H, Neut % (Auto) 73.0 H, Lymph % (Auto) 17.1 L, [place] % (Auto) 6.8, Eos % (Auto) 1.1, Baso % (Auto) 0.6, Absolute Neuts (auto) 7.3, Absolute Lymphs (auto) 1.71, Nucleated RBC % 0, Syphilis Total Ab Non-reactive, Blood Type O POSITIVE, Antibody Screen NEGATIVE NST FHR Rate Baby A Baseline: 120 Variability:: Moderate Accelerations:: 15 x 15 Decelerations:: None NST Reactive:: Yes FHR Category:: Category I Assessment & Plan (1) Encounter for induction of labor: COMMENT: plan valencia and pitocin (2) Large for gestational age fetus affecting management of mother: QUALIFIERS: Fetus number: single or unspecified fetus Trimester: third trimester Qualified Code(s): O36.63X0 - Maternal care for excessive growth, third trimester, not applicable or unspecified COMMENT: 4545g on 05/01/2024 with 99.99 AC. PLAN: Plan at 39.3 on Pitocin currently infusing at 2mu/hr after a prolonged deceleration that recovered with positioning to hands and knee and hypotension recovery. current tracing: FHT: Moderate variability reactive no decelerations category I tracing [place]: q4 Contractions reviewed tracing abnormalities since last note: occassional variables, late decelerations that resolved with position changes. pitocin paused due to prolonged deceleration. FHR now with moderate variability with accels and pitocin resumed. SVE 8/90/0, more cervix on R with swelling. A/P: continue pitocin per protocol benadryl 50mg ivx1 for cervical swelling recheck cervical exam in 2 hours or PRN based on tracing. Dr. Levin updated on exam.
[2024-05-02] MEDS: DiphenhydrAMINE 50 MG/ML Syringe IV (06:54)
[2024-05-02] MEDS: 0.9% Saline Lock 10 ML Syringe IV ×2 (08:03→10:32)
--- NOTE | 2024-05-02 11:01 | PCM.PN.CNM ---
Objective Data Objective Data Vital Signs: Vital Signs Temp Pulse Resp BP Pulse Ox O2 Del Method 98.3 F 86 16 98/51 L 97 Room Air 05/02/24 10:47 05/02/24 09:14 05/02/24 09:13 05/02/24 09:14 05/02/24 05:41 05/02/24 03:59 Oxygen Delivery Method Room Air Weight: 184 lb Body Mass Index (BMI) 31.6 Intake & Output: Intake and Output for Last 24 Hours 04/30/24 05/01/24 05/02/24 23:59 23:59 23:59 Intake Total 18.47 / 18.47 3725.70 / 3725.70 Output Total 975 / 975 1400 / 1400 Balance -956.53 / -956.53 2325.70 / 2325.70 Lab / Micro Data 05/01/24 13:40 Labs: Laboratory Results - last 24 hr 05/01/24 13:07: POC Glucose 79 05/01/24 13:40: WBC 10.0, RBC 4.07 L, Hgb 11.7 L, Hct 34.6 L, MCV 85.0, MCH 28.7, MCHC 33.8, RDW Std Deviation 40.2, RDW Coeff of Julius 13.2, Plt Count 152, MPV 10.6, Immature Gran % (Auto) 1.400 H, Neut % (Auto) 73.0 H, Lymph % (Auto) 17.1 L, [place] % (Auto) 6.8, Eos % (Auto) 1.1, Baso % (Auto) 0.6, Absolute Neuts (auto) 7.3, Absolute Lymphs (auto) 1.71, Nucleated RBC % 0, Syphilis Total Ab Non-reactive, Blood Type O POSITIVE, Antibody Screen NEGATIVE NST FHR Rate Baby A Baseline: 140 Variability:: Moderate Accelerations:: 15 x 15 Decelerations:: Late and Variable FHR Category:: Category I (resolved to cat 1 from cat 2) Uterine Activity:: q2-3 Assessment & Plan (1) Encounter for induction of labor: COMMENT: currently on pitocin, s/p AROM CNM Communc: at 39.3 with intermittent recurrent variables/late decelerations recovering with position changes, pitocin reduced to 4mu. currently on hands and knees. cervical exam with now equally distributed exam 9cm/100/0 head well applied. current tracing: FHT: Moderate variability reactive recovered to category I tracing [place]: q2-3minutes Contractions reviewed tracing abnormalities since last note: late/variables recovering with position changes, reduction in pitocin. A/P: pitocin per protocol position changes if variables continue plan amnioinfusion anticipate Dr. Levin updated on above findings. continue with current plan.
[2024-05-02] MEDS: Amnioinfusion- 0.9% NS 1,000 ML IV.SOLN. 1000 ML INTRA-UTER (12:06)
[2024-05-02] MEDS: 0.9% Normal Saline 100 ML IV.SOLN. INTRA-UTER (12:06)
--- NOTE | 2024-05-02 17:29 | PCM.PN.OB ---
Objective Data Objective Data Patient has been complete and pushing for about 3 hours with baby not proceeding past +1 to +2 station. Some late decelerations versus variable decelerations noted but these resolved between contractions with good variability noted. Vacuum applied at +2 station and no movement of the head was achieved despite 5 adequate contraction pulls with Kiwi vacuum suction. Also, multiple pushes between Kiwi pulls without vacuum. No pop offs. Given no progress with Kiwi vacuum and suspected macrosomia, will proceed with primary section for failure to progress and unsuccessful Kiwi vacuum extraction. We discussed the risks, benefits, and alternatives of both vacuum and section including the possibility of bleeding, infection, and injury to surrounding structures such as bowel and bladder and all questions were answered. Vital Signs: Vital Signs Temp Pulse Resp BP Pulse Ox O2 Del Method 99.0 F 68 16 104/58 L 98 Room Air 05/02/24 15:53 05/02/24 15:53 05/02/24 13:46 05/02/24 15:53 05/02/24 12:16 05/02/24 03:59 Oxygen Delivery Method Room Air Weight: 184 lb Body Mass Index (BMI) 31.6 Intake & Output: Intake and Output for Last 24 Hours 04/30/24 05/01/24 05/02/24 23:59 23:59 23:59 Intake Total 18.47 / 18.47 6015.03 / 6015.03 Output Total 975 / 975 1800 / 1800 Balance -956.53 / -956.53 4215.03 / 4215.03 Lab / Micro Data 05/01/24 13:40
[2024-05-02] MEDS: Cefazolin 2 GM in 0.9% Normal Saline (100mL Bag) 100 ML IV (17:35)
[2024-05-02] MEDS: Azithromycin 500 MG in Dextrose 5%-Water (250mL Bag) 250 ML 250 MG IV (17:47)
[2024-05-02] MEDS: Methylergonovine 0.2 MG/ML Ampul IM (18:02)
--- NOTE | 2024-05-02 18:49 | EX.PCM.OBRPT ---
Maternal Data Information KIMBER Calculator Estimated Delivery Date Method Current WG Current Estimate 05/06/24 LMP (Certain) 39w 3d Other Estimates 05/03/24 Ultrasound #1 39w 6d Details Operative Information Date of Procedure: 05/02/24 Pre-Operative Diagnosis: Failure to Descend, Suspected Macrosomia, Polyhydramnios Post-Operative Diagnosis: Failure to Descend, Macrosomia, Polyhydramnios Indications for : Arrrest of Descent and Failed vaccuum extraction Indications Narrative: Surgeon: Amol Levin MD, FACOG Procedure: Repeat Low Transverse Cervical Caesarean Section Findings: Viable female infant with Apgars of 2/7/9 in occiput anterior presentation with clear amniotic fluid and normal three-vessel placenta. Indication: This is a 23-year-old who presented for induction for macrosomia and polyhydramnios at 39 weeks gestation. care has otherwise been uneventful. Patient progressed to complete and pushing for about 3 hours with baby not proceeding past +1 to +2 station. Some late decelerations versus variable decelerations noted but these resolved between contractions with good variability noted. Vacuum applied at +2 station and no movement of the head was achieved despite 5 adequate contraction pulls with Kiwi vacuum suction. Also, multiple pushes between Kiwi pulls without vacuum. No pop offs. Given no progress with Kiwi vacuum and suspected macrosomia, it was decided to proceed with primary section for failure to progress and unsuccessful Kiwi vacuum extraction. We discussed the risks, benefits, and alternatives of both vacuum and section including the possibility of bleeding, infection, and injury to surrounding structures such as bowel and bladder and all questions were answered. Procedure: Patient was taken to the operating room where after epidural catheter was redosed, the patient was prepped and draped in usual sterile fashion. A Fonseca catheter had been previously placed. The abdomen was entered through a Pfannenstiel incision and peritoneum was entered bluntly. After developing a bladder flap on the lower uterine segment a low transverse incision was made on the uterus and head was delivered onto the operative field the nose mouth and oropharynx were bulb suctioned. Subsequently a viable female was born with Apgars of 2/7/9. The infant was noted to cry move all extremities vigorously on the operative field. The umbilical cord was doubly clamped and ligated and infant handed to the nursery personnel who were present for the delivery. Placenta was delivered and noted to be 3 vessels and normal. Uterus was exteriorized and remaining placental tissue was removed. The uterus was then closed in 2 layers first with running locked 0 Vicryl suture followed by a second imbricating layer with 0 Vicryl suture. 0 Vicryl suture was then used in a horizontal mattress interrupted fashion to affect final hemostasis of the uterine incision line. Normal fallopian tubes and ovaries were visualized and the uterus was returned to the pelvis. Hemostasis was noted and rectus abdominis muscles were reapproximated in the midline with interrupted Number 0 Vicryl suture in a horizontal mattress fashion. Fascia was closed with running Number 1 PDS Strata fix suture. Subcutaneous tissue was irrigated with copious amounts of saline solution and then closed with running 3-0 Vicryl suture. Skin was closed with 4-0 monocryl suture in a running subcuticular fashion. Steri strips and a Mepilex dressing were placed across the incision. The patient tolerated the procedure well and was taken to the recovery room in satisfactory condition. Sponge, needle, and instrument counts were all reportedly correct. EBL was 750 cc. Ancef 2 gms and azithromycin IV were given prior to the procedure. Spicemen to Pathology: None Complications: None Classification: KATERINE Procedure Type: low transverse wastewater superintendent #1: Edie Pemberton Type of Anesthesia: Epidural (With Duramorph) Anesthesiologist: Daria Burden Antibiotic Given: Ancef 2 grams IV x1 and Zithromax 500 mg/5 mL X1 Drain: Fonseca to straight drain Estimated Blood Loss: 750 cc Fluids Replaced: Crystalloid Findings Presentation: Positive for Vertex Amniotic Membrane Rupture Type: Artificial Amniotic Fluid Description: Clear Placental Delivery Description: Spontaneous Placenta Disposition: [facility] Cord Vessel Description: 3 Vessels Cord Entanglement: None Cord Gases: ABG and VBG Infant A Gender: Female (1 minute): 2 (5 minute): 7 Complications Risks of Surgery Discussed w/Patient: Bleeding, Infection and Injury to surrounding structure(s) including bowel and bladder Complications: None
--- NOTE | 2024-05-02 19:01 | EX.PCM.OBRPT ---
Maternal Data Information KIMBER Calculator Estimated Delivery Date Method Current WG Current Estimate 05/06/24 LMP (Certain) 39w 3d Other Estimates 05/03/24 Ultrasound #1 39w 6d Details Findings Description of Procedure: I was present and assisted Dr. Levin From the start of the procedure to the end. I performed retraction, suture cutting, suction, and fundal pressure assistance during the procedure. I also performed skin closure with a 4-0 Monocryl suture in a running fashion with excellent hemostasis noted upon full closure. The wound was dressed with mepliex and the patient was brought to recovery in stable condition. See 's Operative note for full details of the procedures. Presentation: Positive for Vertex Amniotic Fluid Description: Clear Procedures Urinary/Genital 52xxx-59xxx: 80282 Delivery global pkg (CNM first asssit)
[2024-05-02] MEDS: Oxytocin 15 Units/NS 250ml 15 UNITS/250 ML IV.SOLN 83 UNITS IV (19:20)
[2024-05-02] MEDS: Ketorolac 30 MG/ML Syringe IV (19:44)
[2024-05-02] MEDS: Lactated Ringers 1,000 ML 100 ML IV (22:30)
[2024-05-03] VITALS (7 sets, daily range): BP systolic 95–111; BP diastolic 62–73; PULSE 63–90; RESP 16; TEMP 36.3–36.9; O2SAT 97–99
[2024-05-03] MEDS: Acetaminophen 500 MG Tablet 1000 MG PO ×5 (00:14→23:50)
[2024-05-03] MEDS: Ketorolac 30 MG/ML Syringe IV ×3 (00:45→13:25)
[2024-05-03] MEDS: Cefazolin 1 GM/50 ML BAG IV ×2 (04:40→13:25)
[2024-05-03 06:26] LABS: Hematocrit 32.5 % (37-47); Hemoglobin 10.9 g/dL (12.0-15.0); Mean Corp Hgb Conc 33.5 g/dL (32-36); Mean Corpuscular Volume 86.4 fL (81-99); Mean Platelet Vol. 10.6 fl (6.2-12.0); Platelet Count 160 K/mm3 (150-450); RBC Distribution Width CV 13.1 % (11.6-14.6); Red Blood Count 3.76 M/mm3 (4.2-5.4); White Blood Count 20.7 K/mm3 (4.4-11.0)
--- NOTE | 2024-05-03 10:35 | PCM.PN.CNM ---
Subjective Subjective Patient doing well without complaints. Tolerating PO. Ambulating and voiding without difficulty. Feeding well. Denies chest pain, shortness of breath, calf pain/swelling, fevers, chills, lightheadedness. Objective Data Objective Data Vital Signs: Vital Signs Temp Pulse Resp BP Pulse Ox O2 Del Method 97.5 F L 67 16 108/71 97 Room Air 05/03/24 08:16 05/03/24 08:16 05/03/24 08:16 05/03/24 08:16 05/03/24 08:16 05/03/24 08:16 Oxygen Delivery Method Room Air Weight: 184 lb Body Mass Index (BMI) 31.6 Intake & Output: Intake and Output for Last 24 Hours 05/01/24 05/02/24 05/03/24 23:59 23:59 23:59 Intake Total 18.47 / 18.47 6862.19 / 6862.19 1050 / 1050 Output Total 975 / 975 3300 / 3300 Balance -956.53 / -956.53 3562.19 / 3562.19 1050 / 1050 Lab / Micro Data 05/03/24 06:15 Labs: Laboratory Results - last 24 hr 05/03/24 06:15: WBC 20.7 H, RBC 3.76 L, Hgb 10.9 L, Hct 32.5 L, MCV 86.4, MCH 29.0, MCHC 33.5, RDW Std Deviation 41.0, RDW Coeff of Julius 13.1, Plt Count 160, MPV 10.6 Physical Exam Const alert and oriented x3 Neck full ROM Lymph Lymphatic: no lymphadenopathy noted Chest inspection of chest normal Resp normal respiratory effort and normal air movement Effort and Inspection: able to speak in complete sentences Auscultation: clear to auscultation bilaterally Cardio regular rate and regular rhythm GI normal to inspection, nondistended, normoactive bowel sounds Uterus Palpation: uterus fundus firm Extremity normal to inspection, full ROM and no pedal edema Skin no rashes or lesions noted Skin Narrative: dressing intact, marked drainage. Psych mental status grossly normal Assessment & Plan (1) delivery delivered: COMMENT: CAMRYN pc/s failed vacuum 39.3 girl: Kevon PLAN: s/p LTCS PPD # 1 1. routine post care 2. breast feeding- support given 3. rh positive 4. rubella immune
[2024-05-03] MEDS: Senna/Docusate Sodium 1 Tablet 2 TABLET PO (11:55)
[2024-05-03] MEDS: Ibuprofen 600 MG Tablet PO (20:57)
[2024-05-04] MEDS: Ibuprofen 600 MG Tablet PO ×4 (02:09→22:07)
[2024-05-04 02:19] VITALS: BP 110/62; PULSE 81; RESP 16; TEMP 36.2; O2SAT 97
[2024-05-04] MEDS: Acetaminophen 500 MG Tablet 1000 MG PO ×3 (06:18→19:43)
--- NOTE | 2024-05-04 08:12 | PN.OBGYN_ITS ---
Subjective Subjective Patient doing well without complaints. Tolerating PO. Ambulating and voiding without difficulty. Feeding well. Denies chest pain, shortness of breath, calf pain/swelling, fevers, chills, lightheadedness. Objective Data Objective Data Vital Signs: Vital Signs Temp Pulse Resp BP Pulse Ox O2 Del Method 97.1 F L 81 16 110/62 97 Room Air 05/04/24 02:19 05/04/24 02:19 05/04/24 02:19 05/04/24 02:19 05/04/24 02:19 05/04/24 02:19 Oxygen Delivery Method Room Air Weight: 184 lb Body Mass Index (BMI) 31.6 Intake & Output: Intake and Output for Last 24 Hours 05/02/24 05/03/24 05/04/24 23:59 23:59 23:59 Intake Total 6862.19 / 6862.19 1100 / 1100 Output Total 3300 / 3300 2150 / 2150 Balance 3562.19 / 3562.19 -1050 / -1050 Lab / Micro Data Attestation: I reviewed the patient's lab results. 05/03/24 06:15 Labs: Laboratory Results - last 24 hr 05/03/24 06:15: Screen Cancelled, Baby's Blood Type Cancelled, Baby's DAMARIS Cancelled ROS Constitutional Constitutional: Reports systems reviewed and no addt'l complaints, except as documented; Denies anorexia or headache(s) Cardiovascular Cardiovascular: Reports systems reviewed and no addt'l complaints, except as documented; Denies dizziness, dyspnea, nausea or tachypnea Respiratory/Chest Respiratory/Chest: Reports systems reviewed and no addt'l complaints, except as documented; Denies cough, dyspnea, shortness of breath at rest or tachypnea Gastrointestinal Gastrointestinal: Reports systems reviewed and no addt'l complaints, except as documented; Denies abdominal pain, constipation or nausea Genitourinary Genitourinary: Reports systems reviewed and no addt'l complaints, except as documented; Denies burning urination, difficulty urinating, dysuria, urinary frequency or urinary incontinence Musculoskeletal Musculoskeletal: Reports systems reviewed and no addt'l complaints, except as documented Integumentary Integumentary: Reports systems reviewed and no addt'l complaints, except as documented Neurologic Neurologic: Reports systems reviewed and no addt'l complaints, except as documented; Denies abnormal speech, dizziness or headache(s) Psychiatric Psychiatric: Reports systems reviewed and no addt'l complaints, except as documented Endocrine Endocrinology: Reports systems reviewed and no addt'l complaints, except as documented Hematologic/Lymphatic Hematologic/Lymphatic: Reports systems reviewed and no addt'l complaints, except as documented Physical Exam Const alert, oriented x3 and no apparent distress Neck full ROM Resp normal respiratory effort, normal air movement and no retractions Effort and Inspection: able to speak in complete sentences and symmetric chest movement GI soft to palpation Bladder / Kidney Exam: bladder normal to palpation Uterus Palpation: uterus fundus firm Extremity normal to inspection and full ROM Psych mental status grossly normal, thought process normal and cooperative Assessment & Plan (1) delivery delivered: COMMENT: CAMRYN pc/s failed vacuum 39.3 girl: Kevon PLAN: s/p LTCS PPD # 2 1. routine post care 2. breast feeding- support given 3. rh positive 4. rubella immune (2) Encounter for induction of labor: COMMENT: currently on pitocin, s/p AROM (3) Large for gestational age fetus affecting management of mother: QUALIFIERS: Fetus number: single or unspecified fetus Trimester: third trimester Qualified Code(s): O36.63X0 - Maternal care for excessive growth, third trimester, not applicable or unspecified COMMENT: 4545g on 05/01/2024 with 99.99 AC. (4) Polyhydramnios: COMMENT: AROM at 1800, large amounts. clear. (5) Uterine size-date discrepancy, third trimester: COMMENT: growth US ordered (6) Anemia affecting : QUALIFIERS: Trimester: third trimester Qualified Code(s): O99.013 - Anemia complicating , third trimester COMMENT: start PO iron (7) Genetic carrier status: COMMENT: PCKD carrier, FOB neg. 08/20 (8) Anxiety: COMMENT: no meds, counseling encouraged; stable (9) Supervision of high-risk : QUALIFIERS: Trimester: third trimester Qualified Code(s): O09.93 - Supervision of high risk , unspecified, third trimester COMMENT: PRR , KIMBER 05/06/24, girl Kevon Chan (10) : QUALIFIERS: Weeks of gestation: 39 weeks Qualified Code(s): Z 3A.39 - 39 weeks gestation of COMMENT: GBS neg, anatomy nl, nl genetic & carrier testing NIPT low risk, carrier neg. / carrier for Polycystic Kidney Disease (11) History of recurrent miscarriages: (12) Choroid plexus cyst of fetus: COMMENT: NIPT low risk Charges/Coding Multi Select Codes Urinary/Genital Urinary/Genital CPT Codes: No Charge
[2024-05-04 09:07] VITALS: BP 93/61; PULSE 78; RESP 16; TEMP 36.2; O2SAT 100
[2024-05-04] MEDS: Senna/Docusate Sodium 1 Tablet 2 TABLET PO (10:52)
[2024-05-04 13:00] VITALS: BP 102/69; PULSE 80; RESP 16; TEMP 36.7; O2SAT 100
[2024-05-04 20:20] VITALS: BP 124/79; PULSE 79; RESP 16; TEMP 36.4; O2SAT 100
[2024-05-05] MEDS: Acetaminophen 500 MG Tablet 1000 MG PO ×2 (02:09→07:48)
[2024-05-05 02:12] VITALS: BP 122/90; PULSE 86; RESP 16; TEMP 36.8; O2SAT 100
[2024-05-05] MEDS: Ibuprofen 600 MG Tablet PO ×2 (04:05→10:25)
--- NOTE | 2024-05-05 07:30 | PCM.PN.OB ---
Subjective Subjective Patient doing well without complaints. Tolerating PO. Ambulating and voiding without difficulty. feeding well. Denies chest pain, shortness of breath, calf pain/swelling, fevers, chills, lightheadedness. Objective Data Objective Data Vital Signs: Vital Signs Temp Pulse Resp BP Pulse Ox O2 Del Method 98.2 F 86 16 122/90 H 100 Room Air 05/05/24 02:12 05/05/24 02:12 05/05/24 02:12 05/05/24 02:12 05/05/24 02:12 05/05/24 02:12 Oxygen Delivery Method Room Air Weight: 184 lb Body Mass Index (BMI) 31.6 Intake & Output: Intake and Output for Last 24 Hours 05/03/24 05/04/24 05/05/24 23:59 23:59 23:59 Intake Total 1100 / 1100 Output Total 2150 / 2150 Balance -1050 / -1050 Lab / Micro Data 05/03/24 06:15 ROS Constitutional Constitutional: Reports systems reviewed and no addt'l complaints, except as documented Cardiovascular Cardiovascular: Reports systems reviewed and no addt'l complaints, except as documented Respiratory/Chest Respiratory/Chest: Reports systems reviewed and no addt'l complaints, except as documented Gastrointestinal Gastrointestinal: Reports systems reviewed and no addt'l complaints, except as documented Physical Exam Const alert, oriented x3 and no apparent distress HEENT Head and Scalp: atraumatic Resp normal respiratory effort GI soft to palpation and non-tender Inspection: incision intact, healing well and drainage (none) Bimanual Exam - Vag & Uterus: uterus non-tender Uterus Palpation: uterus fundus firm (below Umbilicus) Assessment & Plan (1) delivery delivered: COMMENT: CAMRYN pc/s failed vacuum 39.3 girl: Kevon (2) Encounter for induction of labor: COMMENT: currently on pitocin, s/p AROM (3) Large for gestational age fetus affecting management of mother: QUALIFIERS: Fetus number: single or unspecified fetus Trimester: third trimester Qualified Code(s): O36.63X0 - Maternal care for excessive growth, third trimester, not applicable or unspecified COMMENT: 4545g on 05/01/2024 with 99.99 AC. (4) Polyhydramnios: COMMENT: AROM at 1800, large amounts. clear. (5) Uterine size-date discrepancy, third trimester: COMMENT: growth US ordered PLAN: Plan s/p LTCS PPD # 3 1. routine post care 2. breast feeding- support given 3. rh positive 4. rubella immune
--- NOTE | 2024-05-05 07:31 | DCINST_ITS ---
Discharge Instructions Diet Discharge Diet: No restrictions Activity Discharge Activity: May Not Drive (for 2 weeks or while taking narcotic pain medications.), May Shower and May Take a Tub Bath (in 7 days) May shower in (days): 0 May resume sexual activity in: 4-6 weeks Weight Bearing Status: Full weight bearing Lifting Restrictions: 20 pounds Dressing / Incision Call your doctor if your incision/area has: Continuous Slow Oozing, Sudden Increased Bleeding, Increased Pain/ Swelling, Increased Redness and Foul Smelling Discharge Call your doctor if you observe: Fever of 101 or Higher and Using more than 1 pad per hour (for 2 hours) Suture Line Care: Avoid Pulling/Pushing and Avoid Pinching/Bending Cleanse incision/area with: Soap & Water and Keep Dressing Clean & Dry Follow Up Care Please Follow Up With: Shelley Elias MD When: Call [phone] to make an appointment for an incision check in 1-2 weeks. Test Results: Test results from this visit will be discussed in further detail at your follow- up appointment, if applicable. Discharge Plan Admission Admit Date/Time: 05/01/24 12:45 Attending Provider: Amol Levin Primary Care Provider: Care PhysicianKerry Primary Discharge Orders/Prescriptions Prescriptions: New oxycodone-acetaminophen [Percocet] 5-325 mg tablet 1 tab PO Q6H PRN (Reason: pain) 7 Days Qty: 20 0RF naproxen 500 mg tablet 500 mg PO BID PRN PRN (Reason: Pain) Qty: 30 1RF No Action PNV no.[id number] 180 mcg-35 mg- 25 mg-5 mg tablet,chewable 1 tab PO DAILY ferrous sulfate [iron] 325 mg (65 mg iron) tablet 325 mg PO DAILY Referrals / Follow Up: Care PhysicianKerry Primary [Primary Care Provider] - Disposition Disposition (needs filled in before D/C Order can be placed): Home, Self Care
[2024-05-05 07:57] VITALS: BP 108/73; PULSE 77; RESP 16; TEMP 536.2; TEMP 997.1; O2SAT 98
[2024-05-05] MEDS: Senna/Docusate Sodium 1 Tablet 2 TABLET PO (10:24)
--- NOTE | 2024-05-05 10:42 | CASEMGMT ---
Social Work Assessment Labor and Delivery Unit Patient Address:[address] [place] [address] [place] [address] Phone number: [phone] Date of Referral: 05/05/24 Time of Referral:? [phone] Referred By: Dr. Elias Date of Intervention: 05/05/24?? Time of Intervention:? 1000 Reason for Referral:? anxiety Sw completed chart review and acknowledges social work consult due to maternal mental health history. Sw presented to bedside and introduced self to mother of baby (MOB- Gayla) and father of baby (FOB- Chan). Sw explained sw role during hospitalization and completed psychosocial assessment. History obtained from: medical records, MOB and FOB Household composition:Currently residing in family home is MOB and FOB. baby to join family when ready for discharge. Patient's parent/guardian status:? 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 This is frist baby for both parents, no concerns reported of domestic violence or intimate partner violence. Medical History: ?VICK is 23 year old female who is 3, para 0- now 1 following labor and delivery. VICK experienced two miscarriages prior to this . VICK received routine care during with [facility]. VICK presented to hospital for induction of labor on 05/01/24 at 39 weeks gestation. VICK ultimately delivered baby via emergency on 05/02/24. Baby girl, named Colby Santos, was born weighing 9lb 8oz with apgars of 3, 7, and 9 at one, five and ten minutes of life, respectfully. VICK states that she is breast feeding and it is going well. Educational Status:? Both parents graduated from high school and have some college courses but no degrees. No difficulties with reading, learning or comprehension. Financial Status: Both parents are gainfully employed outside of the home. VICK works for [employer] in [employer]. FOFelicia works for [employer]. Infant Supplies:?Parents have obtained all necessary baby supplies, including: car seat, safe sleep space, clothes, diapers and wipes. VICK also has a pump for home. ? Childcare/Caregiver(s):? MOB will be the primary caregiver to baby along with FOB. When both parents are working they have family members who will provide childcare. Transportation:?? Both parents have their drivers license and reliable means of transportation. NO barriers at this time. Programs/Agencies Involved: ?Parents are not connected to any community agencies that assist them financially- they are over income. MOB denies linkage to any mental health services or supports. ?? Children Services/Legal Issues:?No history of children services involvement, no issues or concerns warranting referral to be made. ? Behavioral Health Issues: ??Mental Health History:?FOB denies mental health history. MOB states that she has experienced some anxiety, but relates it to experiencing two miscarriages prior to this successful and delivery. MOB denies medication or involvement with counseling/ therapy. ?? Substance Use History: Parents deny substance use prior to and during . ?? Family History:? Parents deny family history of addiction/ substance use or significant mental health diagnoses. ? Drug Screens: ??No drug screens observed in chart review. Family/Social Stressors:? Parents deny any family stressors, issues or concerns. Support Systems: Both parents identify that their parents are their biggest supports. Depression/Shaken Baby/Safe Sleeping:? Sw educated parents on signs and symptoms of baby blues and mood and anxiety disorders. MOB states that she did some research and they have had several conversations about these issues prior to baby being born. FOB states that if mom were to struggle during this period he would be able to recognize that she is struggling and would know how to help and support her. Sw encouraged MOB to talk to her OBGYN if she starts to feel anxious during this time. MOB expressed understanding. Sw educated parents on shaken baby prevention and ABCs of safe sleep. Parents express understanding. ASSESSMENT:? MOB and baby admitted following labor and delivery. MOB with history of anxiety, and able to recognize when she is struggling. MOB and FOB have talked about things that FOB can do to be supportive to MOB and her mental health during this time. Parents were talkative and engaging throughout completion of assessment. FOB observed to provide loving and appropriate hands on care to . Parents have obtained all necessary baby items and have natural supports in place. PLAN:? MOB and baby to be discharged when medically ready. Sw provided literature for parents to review regarding: shaken baby prevention, ABCs of safe sleep, Help Me Grow, list of [place] health resources that are accessible to family in time of need, and signs and symptoms of baby blues and mood and anxiety disorders to be on the lookout for. ?No other services requested or indicated. Mat Mathews, RETAIL SHIFT LEADER, JUNIOR STAFF ACCOUNTANT
--- NOTE | 2024-05-07 08:02 | DS.PCM_ITS ---
Providers Date of Admission: 05/01/24 Primary Care Physician: Kerry Primary Care Phys Reason For Visit: C SECTION Diagnosis Discharge Diagnosis (1) delivery delivered: Status: Acute Code(s): O82 - Encounter for delivery without indication (2) Encounter for induction of labor: Status: Inactive Code(s): Z34.90 - Encounter for supervision of normal , unspecified, unspecified trimester (3) Large for gestational age fetus affecting management of mother: Status: Inactive Code(s): O36.60X0 - Maternal care for excessive growth, unspecified trimester, not applicable or unspecified Qualifiers: Fetus number: single or unspecified fetus Trimester: third trimester Q ualified Code(s): O36.63X0 - Maternal care for excessive growth, third trimester, not applicable or unspecified (4) Polyhydramnios: Status: Inactive Code(s): O40.9XX0 - Polyhydramnios, unspecified trimester, not applicable or unspecified (5) Uterine size-date discrepancy, third trimester: Status: Inactive Code(s): O26.843 - Uterine size-date discrepancy, third trimester Plan s/p LTCS PPD # 3 1. routine post care 2. breast feeding- support given 3. rh positive 4. rubella immune Medications at Discharge Home Medications PNV [id number] 180 mcg-om3 35 mg-dha 25 mg-epa 5 mg-fish oil chew tablet 1 tab PO DAILY 10/08/23 ferrous sulfate 325 mg (65 mg iron) tablet (iron) 325 mg PO DAILY anemia 05/01/24 naproxen 500 mg tablet 500 mg PO BID PRN PRN Pain #30 tabs 05/05/24 oxycodone-acetaminophen 5 mg-325 mg tablet (Percocet) 1 tab PO Q6H PRN pain 7 days #20 tabs 05/05/24 Hospital Course Summary of Care Provided Hospital Course: patient presented for IOL secondary to LGA and polyhydramnios. underwent IOL and proceeded to complete dilation, pushed for several hours and developed recurrent variables. decision was made by dr johnson to proceed with attempted vacuum extraction which failed and therefore primary was performed. Postoperatively patient had a routine recovery for herself with a return of bowel and bladder function and was ambulating well, tolerating adequate p.o., and was stable for discharge to home on postop day #3. Discharge medications naproxen and Percocet. Follow-up in office in 2 weeks for incision check in 6 weeks for visit. Routine post section diet and activity instructions. Weight / BMI Weight Weight: 184 lb Body Mass Index (BMI) 31.6 ABG / Lab / Microbiology Data 05/03/24 06:15 D/C Instructions Discharge Diet: No restrictions Discharge Activity: May Not Drive (for 2 weeks or while taking narcotic pain medications.), May Shower and May Take a Tub Bath (in 7 days) May shower in (days): 0 May resume sexual activity in: 4-6 weeks Weight Bearing Status: Full weight bearing Call your doctor if your incision/area has: Continuous Slow Oozing, Sudden Increased Bleeding, Increased Pain/ Swelling, Increased Redness and Foul Smelling Discharge Call your doctor if you observe: Fever of 101 or Higher and Using more than 1 pad per hour (for 2 hours) Suture Line Care: Avoid Pulling/Pushing and Avoid Pinching/Bending Cleanse incision/area with: Soap & Water and Keep Dressing Clean & Dry Please Follow Up With: Shelley Elias MD When: Call [phone] to make an appointment for an incision check in 1-2 weeks. Meaningful Use Info Meaningful Use Meaningful Use Diagnoses (Choose all that apply): None applicable Ischemic Stroke Statin Dosing Therapy Reference: STATIN DOSE THERAPY REFERENCE: * Patients > 75 years receive moderate or high dose statin therapy. * Patients 75 years or YOUNGER should receive HIGH intensity statin dose unless contraindicated. You will be required to document reason for non-treatment if statin daily dose does not meet guidelines. HIGH DOSE STATIN THERAPY DAILY Atorvastatin > than or = to 40 mg Rosuvastatin > than or = to 20 mg Amlodipine + Atorvastatin > than or = to 2.5/40 mg Ezetimibe + Simvastatin 10/80 mg Simvastatin 80mg Discharge Plan Admission Admit Date/Time: 05/01/24 12:45 Primary Reason for Your Visit: delivery Attending Provider: Amol Johnson Primary Care Provider: Care Physician,Kerry Primary Discharge Orders/Prescriptions Prescriptions: New oxycodone-acetaminophen [Percocet] 5-325 mg tablet 1 tab PO Q6H PRN (Reason: pain) 7 Days Qty: 20 0RF naproxen 500 mg tablet 500 mg PO BID PRN PRN (Reason: Pain) Qty: 30 1RF No Action PNV no.[id number] 180 mcg-35 mg- 25 mg-5 mg tablet,chewable 1 tab PO DAILY ferrous sulfate [iron] 325 mg (65 mg iron) tablet 325 mg PO DAILY Referrals / Follow Up: Care Physician,No Primary [Primary Care Provider] - Disposition Disposition (needs filled in before D/C Order can be placed): Home, Self Care
--- NOTE | 2024-05-09 07:41 | NURSING ---
F/up questions asked in person at visit on 05/08/24 at 1355. Pt. denies s+s of complications-- states incision is doing well and minimal lochia. going well. Denies questions at this time.
== END 2024-05-05 12:40 | disposition home or self-care (01) | DRG 788 ==
PROVIDERS: Registered Nurse; Admitting Provider Obstetrics & Gynecology; Referring Provider Obstetrics & Gynecology; Visit Provider Obstetrics & Gynecology
DX: O36.63X0 Maternal care for excessive fetal growth, third trimester, not applicable or unspecified (principal); O40.3XX0 Polyhydramnios, third trimester, not applicable or unspecified; D64.9 Anemia, unspecified; O99.02 Anemia complicating childbirth; O66.5 Attempted application of vacuum extractor and forceps; O76 Abnormality in fetal heart rate and rhythm complicating labor and delivery; O62.1 Secondary uterine inertia; Z3A.39 39 weeks gestation of pregnancy; Z37.0 Single live birth; Z87.891 Personal history of nicotine dependence
CPT/HCPCS: 59025; 59050; 82962; 85025; 85027; 85461; 86780; 86850; 86900; 86901; 99221; J7030; J7120; A4216; G0378; J2405

== ENCOUNTER → 2024-05-01 | Outpatient (CLI) | payer OTHER, SELFPAY ==
--- NOTE | 2024-05-01 11:35 | US_ITS ---
STUDY: SECOND AND THIRD TRIMESTER OBSTETRICAL ULTRASOUND REASON FOR EXAM: Female, 23 years old uterine size date discrepancy third trimester LMP: TECHNIQUE: Transabdominal TECHNICAL QUALITY: Adequate. PRIOR ULTRASOUND: None. FINDINGS: There is a single intrauterine fetus. The fetus is in a cephalic presentation. There is demonstrated cardiac activity with a heart rate of 136 bpm. There is a normal amniotic fluid volume. The largest amniotic fluid pocket measures 6.9 cm. The amniotic fluid index (JARON) is 23.3 cm. The placenta is posterior in location and is not low lying. There are Grade 1 placental changes. The cervix measures in length. The bilateral adnexal regions are normal. BIOMETRY: BPD: 10.0 cm: 41 weeks, 1 days HC: 36.4 cm: weeks, days AC: 38.6 cm: weeks, days FL: 7.8 cm: 40 weeks, 0 days CI: 77.79 FL/BPD: 78.29 FL/HC: 21.48 FL/AC: 20.28 HC/AC: 0.94 age by current US: 40 weeks, 4 days. KIMBER by current US: 04/27/2024. Estimated weight: 4545 grams, +/- 682 grams, 99 %. age by prior US: 39 weeks, 2 days. KIMBER by prior US: 05/06/2024. Age by LMP: weeks, days. KIMBER by LMP: . US/OB Limited With Biometrics IMPRESSION: Living intrauterine of 40 weeks 4 days as described above. Electronically Signed: Arnaud Chan MD at 13:25 EDT ,
== END | disposition home or self-care (01) ==
LOC: US 11:25
PROVIDERS: Referring Provider Obstetrics & Gynecology; Visit Provider Obstetrics & Gynecology
DX: O26.843 Uterine size-date discrepancy, third trimester (principal)
CPT/HCPCS: 76816